=== PATIENT | female | born 1965 | race Caucasian/White ===

== ENCOUNTER → 2016-04-29 | Outpatient (CLI) | payer MEDICAID ==
[~2016-04-29] MED LIST: CLARITIN10 MG PO; MEDROL DOSEPAK4 MG PO; Nizoral 2%15 GM PO; ROBITUSSIN AC 110 ML PO; SEPTRA DS 800 M1 TAB PO; VIBRAMYCIN100 MG PO
[2016-04-29 12:22] LABS: BASO % 0.4 % (0.0-1.0); EOS # 0.2 10*3/uL (0.0-0.4); EOS % 2.4 % (1.0-4.0); HEMATOCRIT 40.7 % (37.0-47.0); HEMOGLOBIN 13.3 g/dl (12.0-16.0); LYMPH # 2.5 10*3/uL (1.3-4.4); LYMPH % 32.3 % (27.0-41.0); MEAN CELL VOLUME 86.4 fl (81.0-99.0); MEAN CORPUSCULAR HGB 28.2 pg (27.0-31.0); MEAN CORPUSCULAR HGB CONC 32.7 g/dl (33.0-37.0); MEAN PLATELET VOLUME 10.6 fl (9.6-12.3); MONO # 0.5 10*3/uL (0.1-1.0); MONO % 6.8 % (3.0-9.0); NEUT # 4.4 10*3/uL (2.3-7.9); NEUT % 57.7 % (47.0-73.0); PLATELET COUNT AUTOMATED 236 10*3/uL (130-400); RED BLOOD COUNT 4.71 10*6/uL (4.10-5.10); RED CELL DISTRI WIDTH 12.9 % (0-14.5); WHITE BLOOD COUNT 7.6 10*3/uL (4.8-10.8)
[2016-04-29 12:53] LABS: ALBUMIN 3.8 gm/dl (3.1-4.5); ALKALINE PHOSPHATASE 75 U/L (45-117); BILIRUBIN, TOTAL 0.4 mg/dl (0.2-1.0); BUN 10 mg/dl (7-24); CARBON DIOXIDE 30 mmol/L (21-32); CHLORIDE 105 mmol/L (98-107); CHOLESTEROL 84 mg/dL (<200); CHOLESTEROL/HDL RATIO 1.3; EST GLOM FILT AFRICAN AMERICAN > 60 ml/min; GLUCOSE 75 mg/dL (65-99); HDL CHOLESTEROL 63 mg/dl (40-60); LDL CHOLESTEROL 16 mg/dL (9-159); POTASSIUM 4.5 mmol/L (3.5-5.1); SGOT/AST 23 IU/L (3-35); SGPT/ALT 35 U/L (12-78); SODIUM 143 mmol/L (136-145); TOTAL PROTEIN 7.8 gm/dL (6.4-8.2); TRIGLYCERIDES 26 mg/dl (<150); VLDL CHOLESTEROL 5 mg/dL (6-40)
[2016-04-29 13:32] LABS: HEMOGLOBIN A1c 5.4 % (4.8-5.6)
== END | disposition home or self-care (01) ==
LOC: LAB 11:27 → MAMMO 17:00
PROVIDERS: Internal Medicine
DX: Z12.31 Encounter for screening mammogram for malignant neoplasm of breast (principal); M79.672 Pain in left foot; M79.671 Pain in right foot; Z71.89 Other specified counseling

== ENCOUNTER → 2016-05-05 | Outpatient (CLI) | payer MEDICAID | END | disposition home or self-care (01) | LOC: RESCLI 10:33 | DX: Z12.31 Encounter for screening mammogram for malignant neoplasm of breast (principal); M79.672 Pain in left foot; M79.671 Pain in right foot; K21.9 Gastro-esophageal reflux disease without esophagitis; E66.09 Other obesity due to excess calories; E78.5 Hyperlipidemia, unspecified; J20.9 Acute bronchitis, unspecified; Z72.0 Tobacco use; Z53.20 Procedure and treatment not carried out because of patient's decision for unspecified reasons ==

== ENCOUNTER → 2016-12-16 | Outpatient (CLI) | payer OTHER | END | disposition home or self-care (01) | LOC: RESCLI 10:46 | DX: J44.1 Chronic obstructive pulmonary disease with (acute) exacerbation (principal); J06.9 Acute upper respiratory infection, unspecified; K21.9 Gastro-esophageal reflux disease without esophagitis; E66.09 Other obesity due to excess calories; E78.5 Hyperlipidemia, unspecified; Z72.0 Tobacco use; Z71.6 Tobacco abuse counseling ==

== ENCOUNTER → 2016-12-23 | Outpatient (CLI) | payer OTHER ==
--- NOTE | ~2016-12-23 | PF ---
[place], [place] PULMONARY FUNCTION TEST [id number] UNIT #: [id number] ROOM: DOCTOR: JOZEF AN MD,HERBERT BIRTHDATE: [birth year] DOS: 12/23/2016 The testing was done for patient, 12/23/2016. ORDERED BY: Dr. Adelaida Christianson. HISTORY: The patient is a 51-year-old female, height of 64 inches, weight of 217 pounds, BMI 37.2. Pulmonary function tests were done for symptoms assessment of productive cough, dyspnea upon heels and stairs and frequent wheezing. Chronic tobacco use, 1 pack of cigarettes per day was noted for the past 34 years. SPIROMETRY: FVC was noted as 3.42 liters, 97% predicted value. The FEV1 was noted at 2.66 liters, 96% predicted value. The ratio of FEV1/FVC was recorded as 78%. Flow volume loop was essentially suggestive of mild obstructive airway pattern. The patient's lung volume, thoracic gas volume recorded 74%, residual volume 60%, total lung capacity 84%. Lung volumes were noted normal. The patient's lung diffusion was noted mildly decreased without correction of carbon monoxide hemoglobin value. The patient's airway resistance and passive conductance noted normal. IMPRESSION: Possibility of mild obstructive lung disease cannot be completely excluded with evidence of mild reduction in lung diffusion, nonspecific finding. HERBERT HASKINS MD CM:PFREPORT:PULMONARY FUNCTION TEST [id number] HERBERT AN MD
== END | disposition home or self-care (01) ==
LOC: CP 07:03
DX: J44.1 Chronic obstructive pulmonary disease with (acute) exacerbation (principal); J06.9 Acute upper respiratory infection, unspecified

== ENCOUNTER 2017-01-22 20:04 | Emergency (ER) | payer OTHER ==
[~2017-01-22] VITALS: Ht 162.5 cm; Wt 97.5 kg
[2017-01-22 20:24] VITALS: BP 140/58
[2017-01-22] MEDS ORDERED: CYCLOBENZAPRINE10 MG PO (20:41)
== END 2017-01-22 20:44 | disposition home or self-care (01) ==
LOC: ED 20:04
DX: S39.012A Strain of muscle, fascia and tendon of lower back, initial encounter (principal); F17.200 Nicotine dependence, unspecified, uncomplicated; Z88.8 Allergy status to other drugs, medicaments and biological substances; V53 Occupant of pick-up truck or van injured in collision with car, pick-up truck or van; Y93.89 Activity, other specified; Y92.481 Parking lot as the place of occurrence of the external cause; Y99.8 Other external cause status

== ENCOUNTER → 2017-01-26 | Outpatient (CLI) | payer OTHER ==
[~2017-01-26] MED LIST changes: +CYCLOBENZAPRINE10 MG PO
== END | disposition home or self-care (01) ==
LOC: RESCLI 01:23
DX: J44.9 Chronic obstructive pulmonary disease, unspecified (principal); M54.5 Low back pain; R51 Headache; K21.9 Gastro-esophageal reflux disease without esophagitis

== ENCOUNTER → 2017-05-26 | Outpatient (CLI) | payer OTHER | END | disposition home or self-care (01) | LOC: RESCLI 15:19 | DX: J44.9 Chronic obstructive pulmonary disease, unspecified (principal); R68.89 Other general symptoms and signs; J06.9 Acute upper respiratory infection, unspecified; R50.9 Fever, unspecified; K21.9 Gastro-esophageal reflux disease without esophagitis; E66.09 Other obesity due to excess calories; R03.0 Elevated blood-pressure reading, without diagnosis of hypertension; Z68.39 Body mass index [BMI] 39.0-39.9, adult ==

== ENCOUNTER 2018-10-01 03:08 | Emergency (ER) | payer OTHER ==
[~2018-10-01] VITALS: Wt 99.8 kg
[2018-10-01 03:08] VITALS: BP 141/72
[2018-10-01 03:34] LABS: BILIRUBIN NEGATIVE (NEGATIVE); BLOOD NEGATIVE (NEGATIVE); CLARITY SL CLOUDY (CLEAR); COLOR YELLOW (YELLOW); GLUCOSE NEGATIVE (NEGATIVE); KETONE NEGATIVE (NEGATIVE); LEUKO ESTERASE NEGATIVE (NEGATIVE); NITRITE NEGATIVE (NEGATIVE); SPECIFIC GRAVITY 1.025 (1.005-1.030); UROBILINOGEN 0.2 E.U./dl (0.2-1.0)
[2018-10-01 03:40] LABS: BACTERIA 1+; EPITHELIAL CELLS 20-25
[2018-10-01 03:53] LABS: BASO # 0.1 10*3/uL (0.0-0.1); BASO % 0.9 % (0.0-1.0); EOS # 0.3 10*3/uL (0.0-0.4); EOS % 3.6 % (1.0-4.0); HEMATOCRIT 36.8 % (37.0-47.0); HEMOGLOBIN 11.9 g/dl (12.0-16.0); LYMPH # 2.9 10*3/uL (1.3-4.4); LYMPH % 36.2 % (27.0-41.0); MEAN CELL VOLUME 88.2 fl (81.0-99.0); MEAN CORPUSCULAR HGB 28.5 pg (27.0-31.0); MEAN CORPUSCULAR HGB CONC 32.3 g/dl (33.0-37.0); MEAN PLATELET VOLUME 10.1 fl (9.6-12.3); MONO # 0.6 10*3/uL (0.1-1.0); MONO % 7.3 % (3.0-9.0); NEUT # 4.1 10*3/uL (2.3-7.9); NEUT % 51.5 % (47.0-73.0); PLATELET COUNT AUTOMATED 223 10*3/uL (130-400); RED BLOOD COUNT 4.17 10*6/uL (4.10-5.10); RED CELL DISTRI WIDTH 13.2 % (0-14.5)
[2018-10-01 04:08] LABS: ALBUMIN 3.3 gm/dl (3.1-4.5); ALKALINE PHOSPHATASE 58 U/L (45-117); BUN 11 mg/dl (7-24); CHLORIDE 110 mmol/L (98-107); CREATININE 0.81 mg/dL (0.55-1.02); LIPASE 249 U/L (73-393); POTASSIUM 3.8 mmol/L (3.5-5.1); SGOT/AST 22 IU/L (3-35); SGPT/ALT 30 U/L (12-78); SODIUM 142 mmol/L (136-145); TOTAL PROTEIN 6.5 gm/dL (6.4-8.2)
== END 2018-10-01 07:49 | disposition home or self-care (01) ==
LOC: ED 03:08
PROVIDERS: Emergency Medicine Emergency Medical Services
DX: N39.0 Urinary tract infection, site not specified (principal); K76.0 Fatty (change of) liver, not elsewhere classified; Z87.442 Personal history of urinary calculi; Z91.041 Radiographic dye allergy status

== ENCOUNTER → 2018-10-03 | Outpatient (CLI) | payer OTHER ==
[2018-10-12 14:05] LABS: BUSHITE 0.62 ratio (0.00-3.00); CALCIUM OXALATE 2.02 ratio (0.00-6.00); CALCIUM, URINE 4.4 mg/dL (Not Estab.); CALCIUM, URINE 96.8 mg/24 hr (100.0-300.0); CITRIC ACID (CITRATE) 574 mg/24 hr (320-1240); CREATININE, URINE 1137.4 mg/24 hr (800.0-1800.0); CREATININE, URINE 51.7 mg/dL (Not Estab.); MAGNESIUM, URINE 3.3 mg/dL (Not Estab.); MONOSODIUM URATE 2.58 ratio (0.00-4.00); OSMOLALITY, URINE 335 (300-900); SODIUM, URINE 112 mmol/L (Not Estab.); SODIUM, URINE 246 (39-258); STRUVITE 0.08 ratio (0.00-1.00); URIC ACID 0.03 ratio (0.00-1.20); pH 24 HR URINE 7.5 (.)
== END | disposition home or self-care (01) ==
LOC: LAB 23:13
PROVIDERS: Nurse Practitioner Family
DX: N20.0 Calculus of kidney (principal); R31.9 Hematuria, unspecified

== ENCOUNTER 2019-07-26 13:13 | Emergency (ER) | payer OTHER ==
[~2019-07-26] VITALS: Ht 162.5 cm; Wt 100.2 kg
[2019-07-26] MEDS ORDERED: NORCO 5-325 TA1 EACH PO (15:20)
[2019-07-26] MEDS ORDERED: IBU800 MG PO (15:20)
[2019-07-26 16:22] VITALS: BP 118/76
== END 2019-07-26 16:00 | disposition home or self-care (01) ==
LOC: ED 13:13
DX: S39.92XA Unspecified injury of lower back, initial encounter (principal); F17.200 Nicotine dependence, unspecified, uncomplicated; Z91.041 Radiographic dye allergy status; Z87.442 Personal history of urinary calculi; W01.0XXA Fall on same level from slipping, tripping and stumbling without subsequent striking against object, initial encounter; Y93.89 Activity, other specified; Y92.89 Other specified places as the place of occurrence of the external cause; Y99.0 Civilian activity done for income or pay

== ENCOUNTER → 2020-01-03 | Outpatient (CLI) | payer OTHER ==
[~2020-01-03] MED LIST changes: +IBU800 MG PO; +NORCO 5-325 TA1 EACH PO
== END | disposition home or self-care (01) ==
LOC: RESCLI 13:29
PROVIDERS: ATTEND Internal Medicine
DX: K21.9 Gastro-esophageal reflux disease without esophagitis (principal); E66.09 Other obesity due to excess calories; J44.9 Chronic obstructive pulmonary disease, unspecified; G62.9 Polyneuropathy, unspecified; R42 Dizziness and giddiness; F17.200 Nicotine dependence, unspecified, uncomplicated; Z98.890 Other specified postprocedural states; Z79.899 Other long term (current) drug therapy; Z90.49 Acquired absence of other specified parts of digestive tract; Z91.041 Radiographic dye allergy status

== ENCOUNTER → 2020-01-24 | Outpatient (CLI) | payer OTHER ==
[2020-01-24 11:06] LABS: BASO # 0.1 10*3/uL (0.0-0.1); EOS # 0.2 10*3/uL (0.0-0.4); EOS % 3.5 % (1.0-4.0); HEMATOCRIT 42.5 % (37.0-47.0); LYMPH % 29.3 % (27.0-41.0); MEAN CELL VOLUME 87.4 fl (81.0-99.0); MEAN PLATELET VOLUME 9.9 fl (9.6-12.3); MONO # 0.5 10*3/uL (0.1-1.0); MONO % 7.8 % (3.0-9.0); NEUT % 58.1 % (47.0-73.0); PLATELET COUNT AUTOMATED 213 10*3/uL (130-400); RED BLOOD COUNT 4.86 10*6/uL (4.10-5.10); RED CELL DISTRI WIDTH 13.2 % (0-14.5); WHITE BLOOD COUNT 6.9 10*3/uL (4.8-10.8)
[2020-01-24 11:31] LABS: ALBUMIN 3.6 gm/dl (3.1-4.5); BUN 11 mg/dl (7-24); CHLORIDE 109 mmol/L (98-107); CHOLESTEROL 83 mg/dL (<200); POTASSIUM 4.1 mmol/L (3.5-5.1); SGPT/ALT 38 U/L (12-78); SODIUM 141 mmol/L (136-145); TRIGLYCERIDES 63 mg/dl (<150); VLDL CHOLESTEROL 13 mg/dL (6-40)
[2020-01-24 11:41] LABS: ALKALINE PHOSPHATASE 74 U/L (45-117); CREATININE 0.83 mg/dL (0.55-1.02); HDL CHOLESTEROL 54 mg/dl (40-60); IRON 94 ug/dL (50-170); LDL CHOLESTEROL 16 mg/dL (9-159); SGOT/AST 24 IU/L (3-35); TOTAL PROTEIN 7.4 gm/dL (6.4-8.2)
[2020-01-24 12:11] LABS: VITAMIN D, 25-HYDROXY 14.7 ng/mL (30-100)
== END | disposition home or self-care (01) ==
LOC: LAB 10:35
PROVIDERS: Internal Medicine; ATTEND Emergency Medicine
DX: J44.9 Chronic obstructive pulmonary disease, unspecified (principal); G62.9 Polyneuropathy, unspecified; E66.09 Other obesity due to excess calories

== ENCOUNTER → 2020-02-08 | Outpatient (CLI) | payer OTHER | END | disposition home or self-care (01) | LOC: RESCLI 00:29 | PROVIDERS: ATTEND Student in an Organized Health Care Education/Training Program | DX: E55.9 Vitamin D deficiency, unspecified (principal); G62.9 Polyneuropathy, unspecified; K21.9 Gastro-esophageal reflux disease without esophagitis; J44.9 Chronic obstructive pulmonary disease, unspecified; Z79.899 Other long term (current) drug therapy; F17.200 Nicotine dependence, unspecified, uncomplicated ==

== ENCOUNTER 2021-08-27 14:38 | Inpatient (IN) | payer OTHER ==
[~2021-08-27] VITALS: Ht 162.5 cm; Wt 100.9 kg
[2021-08-27 15:28] VITALS: BP 104/52
[2021-08-27 16:24] LABS: HEMATOCRIT 45.9 % (37.0-47.0); MEAN CELL VOLUME 85.2 fl (81.0-99.0); MEAN CORPUSCULAR HGB 28.2 pg (27.0-31.0); MEAN CORPUSCULAR HGB CONC 33.1 g/dl (33.0-37.0); MEAN PLATELET VOLUME 10.2 fl (9.6-12.3); PLATELET COUNT AUTOMATED 234 10*3/uL (130-400); RED BLOOD COUNT 5.39 10*6/uL (4.10-5.10); RED CELL DISTRI WIDTH 13.2 % (0-14.5); WHITE BLOOD COUNT 23.9 10*3/uL (4.8-10.8)
[2021-08-27 16:27] LABS: MANUAL DIFF REFLEX YES
[2021-08-27 16:36] LABS: ACT PARTIAL THROMBO TIME 33.9 SECONDS (20.0-32.1); INTERNATIONAL NORM RATIO 1.1 (2.0-3.5)
[2021-08-27 16:40] LABS: CREATININE 1.14 mg/dL (0.55-1.02); POTASSIUM 3.7 mmol/L (3.5-5.1)
[2021-08-27 17:00] LABS: TOTAL CELLS COUNTED 100 #CELLS
[2021-08-27 17:01] LABS: BURR CELLS FEW; PLATELET SUFFICIENCY NORMAL (NORMAL); VACUOLATION OF NEUTROPHILS SLIGHT
[2021-08-27 17:54] LABS: BILIRUBIN 2+ (Negative); BLOOD Negative (Negative); CLARITY Cloudy (Clear); COLOR Orange (Yellow); GLUCOSE Negative (Negative); KETONE Trace (Negative); LEUKO ESTERASE 1+ (Negative); NITRITE Positive (Negative); PH 5.5 (4.5-8.0)
[2021-08-27 18:00] LABS: BACTERIA 1+; MUCOUS 2+
[2021-08-27 22:46] VITALS: BP 110/60
[2021-08-28] VITALS (13 sets, daily range): BP systolic 85–122; BP diastolic 38–56
[2021-08-28 04:31] LABS: BASO % 0.2 % (0.0-1.0); EOS % 0.1 % (1.0-4.0); HEMATOCRIT 38.3 % (37.0-47.0); LYMPH # 1.7 10*3/uL (1.3-4.4); LYMPH % 9.6 % (27.0-41.0); MEAN CORPUSCULAR HGB 28.4 pg (27.0-31.0); MEAN CORPUSCULAR HGB CONC 32.6 g/dl (33.0-37.0); MEAN PLATELET VOLUME 10.3 fl (9.6-12.3); MONO # 0.8 10*3/uL (0.1-1.0); MONO % 4.7 % (3.0-9.0); NEUT # 14.6 10*3/uL (2.3-7.9); NEUT % 84.8 % (47.0-73.0); PLATELET COUNT AUTOMATED 186 10*3/uL (130-400); RED CELL DISTRI WIDTH 13.2 % (0-14.5); WHITE BLOOD COUNT 17.2 10*3/uL (4.8-10.8)
[2021-08-28 04:41] LABS: BUN 13 mg/dl (7-24); CHLORIDE 112 mmol/L (98-107); CREATININE 0.78 mg/dL (0.55-1.02); POTASSIUM 3.4 mmol/L (3.5-5.1); SODIUM 141 mmol/L (136-145)
[2021-08-29] VITALS: BP 100/50
[2021-08-29 05:58] LABS: BUN 16 mg/dl (7-24); CHLORIDE 111 mmol/L (98-107); CREATININE 0.67 mg/dL (0.55-1.02); POTASSIUM 3.7 mmol/L (3.5-5.1); SODIUM 140 mmol/L (136-145)
[2021-08-29 06:22] LABS: BASO % 0.2 % (0.0-1.0); EOS % 0.1 % (1.0-4.0); LYMPH % 6.8 % (27.0-41.0); MEAN CELL VOLUME 87.4 fl (81.0-99.0); MEAN CORPUSCULAR HGB 28.8 pg (27.0-31.0); MEAN CORPUSCULAR HGB CONC 32.9 g/dl (33.0-37.0); MEAN PLATELET VOLUME 11.2 fl (9.6-12.3); MONO # 0.8 10*3/uL (0.1-1.0); MONO % 5.5 % (3.0-9.0); NEUT # 12.9 10*3/uL (2.3-7.9); NEUT % 86.8 % (47.0-73.0); PLATELET COUNT AUTOMATED 176 10*3/uL (130-400); RED BLOOD COUNT 3.89 10*6/uL (4.10-5.10); RED CELL DISTRI WIDTH 13.2 % (0-14.5); WHITE BLOOD COUNT 14.9 10*3/uL (4.8-10.8)
[2021-08-29 08:00] VITALS: BP 113/49
[2021-08-29 12:00] VITALS: BP 102/69
[2021-08-29 16:00] VITALS: BP 117/54
[2021-08-29 20:00] VITALS: BP 110/52
[2021-08-30 04:08] VITALS: BP 110/52
[2021-08-30 08:00] VITALS: BP 107/51
[2021-08-30 12:00] VITALS: BP 117/60
[2021-08-30 15:26] VITALS: BP 100/48
[2021-08-30 20:00] VITALS: BP 128/47
[2021-08-31 06:16] LABS: BUN 12 mg/dl (7-24); CHLORIDE 106 mmol/L (98-107); CREATININE 0.73 mg/dL (0.55-1.02); POTASSIUM 2.9 mmol/L (3.5-5.1); SODIUM 139 mmol/L (136-145)
[2021-08-31 06:30] LABS: BASO # 0.1 10*3/uL (0.0-0.1); BASO % 0.6 % (0.0-1.0); EOS # 0.4 10*3/uL (0.0-0.4); EOS % 4.2 % (1.0-4.0); HEMATOCRIT 34.3 % (37.0-47.0); LYMPH # 1.6 10*3/uL (1.3-4.4); LYMPH % 18.3 % (27.0-41.0); MEAN CELL VOLUME 86.4 fl (81.0-99.0); MEAN CORPUSCULAR HGB 28.2 pg (27.0-31.0); MEAN CORPUSCULAR HGB CONC 32.7 g/dl (33.0-37.0); MEAN PLATELET VOLUME 10.5 fl (9.6-12.3); MONO # 0.5 10*3/uL (0.1-1.0); MONO % 5.7 % (3.0-9.0); NEUT # 6.1 10*3/uL (2.3-7.9); NEUT % 70.2 % (47.0-73.0); RED BLOOD COUNT 3.97 10*6/uL (4.10-5.10); RED CELL DISTRI WIDTH 13.5 % (0-14.5); WHITE BLOOD COUNT 8.7 10*3/uL (4.8-10.8)
[2021-08-31 06:32] LABS: PLATELET COUNT AUTOMATED 242 10*3/uL (130-400)
[2021-08-31 08:00] VITALS: BP 118/47
[2021-08-31 12:00] VITALS: BP 182/46
[2021-08-31 12:18] LABS: BUN 13 mg/dl (7-24); CHLORIDE 107 mmol/L (98-107); CREATININE 0.71 mg/dL (0.55-1.02); POTASSIUM 3.2 mmol/L (3.5-5.1); SODIUM 139 mmol/L (136-145)
[2021-08-31] MEDS ORDERED: DOCUSATE SOD100 MG PO (14:01)
[2021-08-31] MEDS ORDERED: HYDROCODONE-AC1 EAC1 PO (14:01)
[2021-08-31] MEDS ORDERED: VITAMIN D350 MC2 PO (14:01)
== END 2021-08-31 15:08 | disposition home or self-care (01) | DRG 710 ==
LOC: ED 14:38 → 5E 20:17 → EDHOLD 20:17 → 5E 08-28 12:40
PROVIDERS: Emergency Medicine; Internal Medicine; Student in an Organized Health Care Education/Training Program; ADMIT Family Medicine; ATTEND Family Medicine
PROC: 0DTJ4ZZ Resection of Appendix, Percutaneous Endoscopic Approach (ICD-10-PCS; principal; 2021-08-28)
PROC: 3E0T3BZ Introduction of Anesthetic Agent into Peripheral Nerves and Plexi, Percutaneous Approach (ICD-10-PCS; 2021-08-28)
PROC: 3E0T33Z Introduction of Anti-inflammatory into Peripheral Nerves and Plexi, Percutaneous Approach (ICD-10-PCS; 2021-08-28)
DX: A41.9 Sepsis, unspecified organism (principal); N17.0 Acute kidney failure with tubular necrosis; E87.1 Hypo-osmolality and hyponatremia; E44.0 Moderate protein-calorie malnutrition; K76.0 Fatty (change of) liver, not elsewhere classified; K35.30 Acute appendicitis with localized peritonitis, without perforation or gangrene; R65.20 Severe sepsis without septic shock; F17.210 Nicotine dependence, cigarettes, uncomplicated; E66.9 Obesity, unspecified; K21.9 Gastro-esophageal reflux disease without esophagitis; G89.18 Other acute postprocedural pain; E87.6 Hypokalemia; Z91.041 Radiographic dye allergy status; Z90.49 Acquired absence of other specified parts of digestive tract; Z90.710 Acquired absence of both cervix and uterus; Z82.49 Family history of ischemic heart disease and other diseases of the circulatory system; Z82.3 Family history of stroke; Z98.891 History of uterine scar from previous surgery; Z71.6 Tobacco abuse counseling; Z68.38 Body mass index [BMI] 38.0-38.9, adult

== ENCOUNTER 2021-09-05 11:35 | Emergency (ER) | payer OTHER ==
[~2021-09-05] VITALS: Ht 162.5 cm; Wt 102.1 kg
[~2021-09-05 11:35] MED LIST changes: +DOCUSATE SOD100 MG PO; +HYDROCODONE-AC1 EAC1 PO; +VITAMIN D350 MC2 PO
[2021-09-05 13:20] LABS: BASO # 0.1 10*3/uL (0.0-0.1); BASO % 0.8 % (0.0-1.0); EOS # 0.3 10*3/uL (0.0-0.4); EOS % 2.9 % (1.0-4.0); HEMATOCRIT 35.4 % (37.0-47.0); LYMPH % 22.9 % (27.0-41.0); MEAN CELL VOLUME 87.6 fl (81.0-99.0); MEAN CORPUSCULAR HGB 28.2 pg (27.0-31.0); MEAN CORPUSCULAR HGB CONC 32.2 g/dl (33.0-37.0); MEAN PLATELET VOLUME 9.3 fl (9.6-12.3); MONO # 0.7 10*3/uL (0.1-1.0); NEUT # 5.4 10*3/uL (2.3-7.9); NEUT % 62.9 % (47.0-73.0); PLATELET COUNT AUTOMATED 374 10*3/uL (130-400); RED BLOOD COUNT 4.04 10*6/uL (4.10-5.10); RED CELL DISTRI WIDTH 13.3 % (0-14.5); WHITE BLOOD COUNT 8.7 10*3/uL (4.8-10.8)
[2021-09-05 13:45] LABS: ALKALINE PHOSPHATASE 79 U/L (45-117); BUN 10 mg/dl (7-24); CHLORIDE 108 mmol/L (98-107); CREATININE 0.67 mg/dL (0.55-1.02); POTASSIUM 3.7 mmol/L (3.5-5.1); SGOT/AST 17 IU/L (3-35); SGPT/ALT 24 U/L (12-78); SODIUM 145 mmol/L (136-145); TOTAL PROTEIN 6.7 gm/dL (6.4-8.2)
[2021-09-05 20:22] VITALS: BP 122/62
== END 2021-09-05 23:14 | disposition left against medical advice (07) ==
LOC: ED 11:35
PROVIDERS: Physician Assistant
DX: T81.43XA Infection following a procedure, organ and space surgical site, initial encounter (principal); F17.200 Nicotine dependence, unspecified, uncomplicated; Z90.49 Acquired absence of other specified parts of digestive tract; Z90.710 Acquired absence of both cervix and uterus; Z91.041 Radiographic dye allergy status; Y92.89 Other specified places as the place of occurrence of the external cause

== ENCOUNTER → 2021-10-30 | Outpatient (CLI) | payer OTHER ==
[2021-10-30 09:00] LABS: CREATININE 0.74 mg/dL (0.55-1.02)
== END | disposition home or self-care (01) ==
LOC: LAB 08:17 → CT 09:00
PROVIDERS: Radiology Diagnostic Radiology; ATTEND Surgery
DX: K76.0 Fatty (change of) liver, not elsewhere classified (principal); K35.80 Unspecified acute appendicitis; Z90.49 Acquired absence of other specified parts of digestive tract; Z90.710 Acquired absence of both cervix and uterus

== ENCOUNTER → 2024-04-27 | Outpatient (CLI) | payer OTHER | END | disposition home or self-care (01) | LOC: RESCLI 07:42 | PROVIDERS: ATTEND Internal Medicine | DX: F17.200 Nicotine dependence, unspecified, uncomplicated (principal); H81.12 Benign paroxysmal vertigo, left ear; H66.90 Otitis media, unspecified, unspecified ear; Z71.89 Other specified counseling; Z79.899 Other long term (current) drug therapy; Z98.890 Other specified postprocedural states ==

== ENCOUNTER → 2024-04-28 | Outpatient (CLI) | payer OTHER ==
[2024-04-28 10:27] LABS: BASO # 0.1 10*3/uL (0.0-0.1); BASO % 1.1 % (0.0-1.0); EOS # 0.3 10*3/uL (0.0-0.4); EOS % 4.1 % (1.0-4.0); MEAN CELL VOLUME 86.9 fl (81.0-99.0); MEAN CORPUSCULAR HGB 27.9 pg (27.0-31.0); MEAN CORPUSCULAR HGB CONC 32.1 g/dl (33.0-37.0); MEAN PLATELET VOLUME 9.7 fl (9.6-12.3); MONO # 0.5 10*3/uL (0.1-1.0); MONO % 7.1 % (3.0-9.0); NEUT % 53.5 % (47.0-73.0); PLATELET COUNT AUTOMATED 203 10*3/uL (130-400); RED BLOOD COUNT 4.95 10*6/uL (4.10-5.10); RED CELL DISTRI WIDTH 12.9 % (0-14.5); WHITE BLOOD COUNT 7.5 10*3/uL (4.8-10.8)
[2024-04-28 11:01] LABS: ALKALINE PHOSPHATASE 70 U/L (46-116); BUN 12 mg/dl (9-23); CHLORIDE 105 mmol/L (98-107); CHOLESTEROL 97 mg/dL (<200); LDL CHOLESTEROL 43 mg/dL (9-159); POTASSIUM 4.1 mmol/L (3.4-5.1); SGPT/ALT 18 U/L (5-49); TOTAL PROTEIN 7.1 gm/dL (6.0-8.0)
[2024-04-28 11:56] LABS: VITAMIN D, 25-HYDROXY 22.9 ng/mL (30-100)
== END | disposition home or self-care (01) ==
LOC: LAB 02:46
PROVIDERS: ATTEND Internal Medicine
DX: F17.200 Nicotine dependence, unspecified, uncomplicated (principal); H81.12 Benign paroxysmal vertigo, left ear

== ENCOUNTER → 2024-05-12 | Outpatient (CLI) | payer OTHER | END | disposition home or self-care (01) | LOC: CT 00:12 | PROVIDERS: ATTEND Family Medicine | DX: Z12.2 Encounter for screening for malignant neoplasm of respiratory organs (principal); F17.210 Nicotine dependence, cigarettes, uncomplicated; R91.1 Solitary pulmonary nodule; J43.9 Emphysema, unspecified; Z90.49 Acquired absence of other specified parts of digestive tract ==